=== PATIENT | male | born 1950 | race Caucasian/White ===

== ENCOUNTER → 2019-02-01 09:41 | Outpatient (CLI) | payer SELFPAY ==
[2019-02-01 11:34] LABS: Alanine Aminotransferase 46 IU/L (21-72); Albumin 4.9 g/dL (3.5-5.0); Albumin Globulin Ratio 1.7 (1.0-2.8); Alkaline Phosphatase 62 U/L (38-126); Aspartate Aminotransferase 38 IU/L (17-59); BUN Creatinine Ratio 28.8 (6-22); Bilirubin Total 0.7 mg/dL (0.2-1.3); Blood Urea Nitrogen 23 mg/dL (9-20); Calcium 10.1 mg/dL (8.4-10.2); Carbon Dioxide 31 mmol/L (22-32); Chloride 98 mmol/L (98-107); Cholesterol 258 mg/dL (140-199); Estimated Glomerular Filt Rate > 60.0 mL/min (>60); Globulin 2.9 g/dL (1.7-4.1); Glucose 106 mg/dL (80-110); HDL Cholesterol 46 mg/dL (40-60); HEMOLYSIS 23 (0-50); LDL Cholesterol Calculated 150 mg/dL (<100); Potassium 4.8 mmol/L (3.4-5.1); Sodium 140 mmol/L (137-145); Total Protein 7.8 g/dL (6.3-8.2); Triglycerides 308 mg/dL (35-150)
== END ==
PROVIDERS: PCP Internal Medicine; Visit Provider Internal Medicine
DX: R03.0 Elevated blood-pressure reading, without diagnosis of hypertension (principal)
CPT/HCPCS: 36415; 80053; 80061

== ENCOUNTER → 2020-02-27 10:25 | Outpatient (CLI) | payer MEDICARE, SELFPAY ==
[2020-02-27 11:25] LABS: Hemoglobin A1C% w Est Avg Glu 5.8 % (4.0-6.0)
== END ==
PROVIDERS: PCP Family Medicine; Referring Provider Family Medicine; Visit Provider Family Medicine
DX: I10 Essential (primary) hypertension (principal)
CPT/HCPCS: 36415; 83036

== ENCOUNTER → 2020-06-18 08:23 | Outpatient (CLI) | payer OTHER, SELFPAY ==
[2020-06-18 09:34] LABS: Add Manual Diff / Slide Review NO; Basophils Absolute Auto 0 /uL (0-100); Basophils Percent Auto 0.8 % (0-2); Eosinophils Absolute Auto 300 /uL (0-450); Eosinophils Percent Auto 5.3 % (2-4); Hematocrit 40.7 % (41-53); Hemoglobin 13.9 g/dL (13.5-17.5); Lymphocytes Absolute Auto 1700 /uL (1100-4500); Mean Corpuscular HGB Conc 34.1 % (30-36); Mean Corpuscular Hemoglobin 31.3 PG (26-34); Mean Corpuscular Volume 91.9 fL (80-100); Monocytes Absolute Auto 400 /uL (0-900); Monocytes Percent Auto 7.4 % (3-14); Neutrophils Absolute Auto 3000 /uL (1500-7000); Neutrophils Percent Auto 55.5 % (50-75); Platelet Count 196 X10^3/uL (150-400); Red Blood Cell Count 4.42 X10^6/uL (4.5-5.9); Red Cell Distribution Width 12.8 % (11.6-14.8); White Blood Cell Count 5.3 X10^3/uL (4.5-11.0)
[2020-06-18 09:54] LABS: Alanine Aminotransferase 24 IU/L (<50); Albumin 4.1 g/dL (3.5-5.0); Albumin Globulin Ratio 1.6 (1.0-2.8); Alkaline Phosphatase 53 U/L (38-126); Aspartate Aminotransferase 23 IU/L (17-59); BUN Creatinine Ratio 32.1 (6-22); Bilirubin Total 0.4 mg/dL (0.2-1.3); Blood Urea Nitrogen 27 mg/dL (9-20); Calcium 9.2 mg/dL (8.4-10.2); Carbon Dioxide 30 mmol/L (22-32); Chloride 104 mmol/L (98-107); Cholesterol 223 mg/dL (140-199); Estimated Glomerular Filt Rate > 60.0 mL/min (>60); Globulin 2.5 g/dL (1.7-4.1); Glucose 116 mg/dL (80-110); HDL Cholesterol 47 mg/dL (40-60); HEMOLYSIS < 15 (0-50); LDL Cholesterol Calculated 141 mg/dL (<100); Potassium 4.5 mmol/L (3.4-5.1); Sodium 138 mmol/L (137-145); Total Protein 6.6 g/dL (6.3-8.2); Triglycerides 174 mg/dL (35-150)
[2020-06-18 10:29] LABS: Prostate Specific Antigen Scrn 5.51 ng/mL (0.1-4.0); TSH w/ Reflex to FT4 1.12 uIU/mL (0.47-4.68)
[2020-06-18 11:51] LABS: Creatinine Urine Random 235.8 mg/dL
[2020-06-18 11:55] LABS: Microalbumi Creatinin Ratio Ur 5.5 ug/mg CR (<30); Microalbumin Urine Random 1.3 mg/dL (0-1.6)
--- NOTE | 2020-06-18 16:00 | DI.ECHO.S_ITS ---
[place] [facility]---------+ [facility] +---------+ : : [address] : : [place] : : : : [id number] : : : : Phone: [phone]+ Echocardiogram Report + + :Name: IVAN DENNIS Study Date: 06/18/2020 Height: 70 in : :[facility] ReadingLocation: Weight: 232 lb : : Gender: Male BSA: 2.2 m2 : :: 1950 Age: 69 yrs BP: 180/98 mmHg: :Reason For Study: HEART MURMUR : :Ordering Physician: JINA, : :GABBY Performed By: Cyndi Aaron : :Referring: GABBY MURO : + + Interpretation Summary Patient was tachycardic during he exam. The ejection fraction is estimated to be 60-65%. The calculated aortic valve area is 1.5 cm2. There is mild to moderate aortic stenosis. Procedure: A two-dimensional transthoracic echocardiogram with color flow and Doppler was performed. Images from the parasternal window were difficult to obtain and are suboptimal in quality. There is no prior echocardiogram noted for this patient. The heart rate ranged between 74-103 bpm during the study. Left Ventricle: The left ventricle is normal in size. The ejection fraction is estimated to be 60-65%. Left ventricular wall motion is normal. Diastolic function could not be accurately assessed due to tachycardia. Right Ventricle: The right ventricle is normal in size and function. Atria: The left atrium is severely dilated. Right atrial size is normal. There is no Doppler evidence for an interatrial shunt. Mitral Valve: The mitral valve leaflets appear mildly thickened, but open well. There is mild mitral annular calcification. There is no mitral regurgitation. Aortic Valve: The aortic valve is not well visualized. There is mild to moderate aortic stenosis. The peak aortic velocity is 3.0 m/sec. The aortic valve mean gradient is 18.6 mmHg. The calculated aortic valve area is 1.5 cm2. There is mild aortic regurgitation. Tricuspid Valve: The tricuspid valve is normal in structure and function. There is a trace or physiologic amount of tricuspid regurgitation. Pulmonary artery pressures cannot be estimated because of the lack of a measurable TR jet velocity but the IVC suggests a CVP of around 3 mmHg. Pulmonic Valve: The pulmonic valve is not well visualized. Great Vessels: The aortic root is normal size. The ascending aorta is mildly enlarged. The IVC is of normal diameter and collapses greater than 50% with a sniff. This suggests a low right atrial pressure of 3 mm Hg. Pericardium/ Pleura There is no pericardial effusion. There is no pleural effusion. MMode/2D Measurements & Calculations LVOT diam: 2.0 cm LA A2 area: 22.4 cm2 asc Aorta Diam: 3.5 cm LA A4 area: 18.1 cm2 Ao Arch Diam (Prox Trans): 2.5 cm LA length (vol): 2.8 cm LA vol: 124.6 ml LA vol index: 56.0 ml/m2 RA long axis: 5.4 cm RVD1 (basal): 3.0 cm RA area: 14.8 cm2 TAPSE: 2.1 cm RA vol: 34.5 ml RA : 15.5 ml/m2 IVC diam: 1.4 cm Doppler Measurements & Calculations Ao V2 max: 300.1 cm/sec LVOT Max Wade: 119.0 cm/sec Ao V2 mean: 201.7 cm/sec LV V1 max P.8 mmHg Ao max P.0 mmHg LV V1 VTI: 22.7 cm Ao mean P.6 mmHg BOSTON(I,D): 1.5 cm2 Ao V2 VTI: 50.9 cm BOSTON(V,D): 1.3 cm2 sev ratio: 0.45 BOSTON indexed to BSA (cm^2/m^2): 0.66 AI P1/2t: 435.3 msec AI dec slope: 293.4 cm/sec2 MV E max wade: 106.8 cm/sec SV(LVOT): 74.3 ml MV A max wade: 2.5 cm/sec MV E/A: 42.7 Med Peak E' Wade: 14.7 cm/sec E/E' med: 7.3 Lat Peak E' Wade: 17.1 cm/sec E/E' lat: 6.3 E/e' average: 6.8 MV dec time: 0.12 sec Reading Physician:09:36 AM
== END ==
PROVIDERS: PCP Family Medicine; Referring Provider Family Medicine; Visit Provider Family Medicine
DX: I35.2 Nonrheumatic aortic (valve) stenosis with insufficiency (principal); I77.89 Other specified disorders of arteries and arterioles; R01.1 Cardiac murmur, unspecified; I10 Essential (primary) hypertension; Z12.5 Encounter for screening for malignant neoplasm of prostate; Z12.11 Encounter for screening for malignant neoplasm of colon; Z13.228 Encounter for screening for other metabolic disorders; Z13.29 Encounter for screening for other suspected endocrine disorder
CPT/HCPCS: 36415; 80053; 80061; 82043; 82570; 84443; 85025; 93306; G0103

== ENCOUNTER → 2020-06-19 08:56 | Outpatient (CLI) | payer OTHER, SELFPAY ==
[2020-06-21 11:14] LABS: Fecal Immunochemical Test Negative (Negative)
== END ==
PROVIDERS: PCP Family Medicine; Referring Provider Family Medicine; Visit Provider Family Medicine
DX: I10 Essential (primary) hypertension (principal); Z12.11 Encounter for screening for malignant neoplasm of colon; Z12.5 Encounter for screening for malignant neoplasm of prostate; Z13.220 Encounter for screening for lipoid disorders; Z13.228 Encounter for screening for other metabolic disorders; Z13.29 Encounter for screening for other suspected endocrine disorder
CPT/HCPCS: 82274

== ENCOUNTER → 2020-07-03 17:19 | Outpatient (CLI) | payer OTHER, SELFPAY ==
--- NOTE | 2020-07-03 17:24 | DI.RAD.S_ITS ---
PROCEDURE: XR CHEST 2V INDICATIONS: Exertional fatigue TECHNIQUE: 2 views of the chest were acquired. COMPARISON: [facility], , CHEST 2 VIEW, 08/24/2012, 16:04. FINDINGS: Surgical changes and devices: None. Scattered subsegmental atelectasis and/or scarring. No focal consolidation. No pleural effusions or pneumothorax. Mediastinum: Mediastinal contours are normal. Heart size is normal. Bones and chest wall: No suspicious bony abnormalities. Soft tissues appear unremarkable. IMPRESSION: Scattered subsegmental atelectasis and/or scarring. No focal consolidation. Dictated by: Luigi Palomino M.D. on 07/04/2020 at 9:34 Approved by: Luigi Palomino M.D. on 07/04/2020 at 9:37
== END ==
PROVIDERS: PCP Family Medicine; Referring Provider Family Medicine; Visit Provider Family Medicine
DX: R53.83 Other fatigue (principal); I10 Essential (primary) hypertension; E78.5 Hyperlipidemia, unspecified
CPT/HCPCS: 71046

== ENCOUNTER → 2020-07-16 09:49 | Outpatient (CLI) | payer OTHER, SELFPAY ==
[2020-07-16 11:01] LABS: COVID19 -Nasal RAPID Negative (Negative)
== END ==
PROVIDERS: PCP Family Medicine; Visit Provider Physician Assistant
DX: Z01.812 Encounter for preprocedural laboratory examination (principal); Z20.822 Contact with and (suspected) exposure to COVID-19
CPT/HCPCS: 87635; C9803

== ENCOUNTER → 2020-07-17 08:09 | Outpatient (CLI) | payer OTHER, SELFPAY ==
--- NOTE | 2020-07-17 08:50 | P.PCN_ITS ---
Cardiac Stress Test Report Referral & Results Date Patient Seen: 07/17/20 Time Patient Seen: 08:30 Requesting provider: Lalo Mitchell Indication: Dyspnea on exertion Rest ECG: Sinus tachycardia Procedure Note: Today following both written and verbal informed consent, the patient was exercised according to a standard Twin protocol. The patient exercised for a total of 2 minutes 43 seconds achieving a maximum heart rate of 149. Patient's maximum systolic blood pressure was 150. This was an estimated 4.6 METs. Testing terminated because of fatigue, angina, and exercise-induced PVCs. Exaggerated hemodynamic response to exercise. Rhythm developed frequent PVCs with minimal exertion. Patient complained of left-sided chest pain and sh ortness of breath resolved with a few minutes of rest. Rhythm normalized in the same time frame. Minimal ST deviations. Marked exercise intolerance. Impression: High probability for cardiac cause of symptoms. Unclear whether this is ischemia or electrophysiologic. Recommend cardiology referral. Please note: Actual ECG tracings can be found in the PACS system.
== END ==
PROVIDERS: PCP Family Medicine; Referring Provider Family Medicine; Visit Provider Family Medicine
DX: R06.09 Other forms of dyspnea (principal)
CPT/HCPCS: 93016; 93017; 93018

== ENCOUNTER → 2020-08-15 16:33 | Outpatient (CLI) | payer OTHER, SELFPAY ==
[2020-08-15 17:07] LABS: COVID19 -Nasal RAPID Negative (Negative)
== END ==
PROVIDERS: PCP Family Medicine; Referring Provider Internal Medicine Cardiovascular Disease; Visit Provider Internal Medicine Cardiovascular Disease
DX: I20.8 Other forms of angina pectoris (principal)
CPT/HCPCS: 87635

== ENCOUNTER → 2021-01-21 14:47 | Outpatient (CLI) | payer OTHER, SELFPAY ==
[2021-01-21 17:44] LABS: COVID19 -Nasal RAPID Negative (Negative)
== END ==
PROVIDERS: PCP Family Medicine; Referring Provider Nurse Practitioner Family; Visit Provider Nurse Practitioner Family
DX: Z01.812 Encounter for preprocedural laboratory examination (principal); Z20.822 Contact with and (suspected) exposure to COVID-19
CPT/HCPCS: 87635; C9803

== ENCOUNTER → 2021-01-23 10:44 | Outpatient (CLI) | payer OTHER, SELFPAY ==
--- NOTE | 2021-01-23 10:46 | DI.NM.S_ITS ---
PROCEDURE: NM DWAINE PERF SPECT REST & STR Rest and exercise myocardial perfusion SPECT. Gated images not obtained. RADIOPHARMACEUTICAL: 26.3 mCi Tc-99m sestamibi IV at rest and 25.7 mCi Tc-99m sestamibi IV at peak exercise. A [id number] was performed. INDICATIONS: Chest pain, unspecified TECHNIQUE: Radiopharmaceutical was injected at peak stress test, and also at rest. SPECT images were obtained, with perfusion images displayed in short axis, horizontal long axis, and vertical long axis views. COMPARISON: None. CARDIAC STRESS: A standard Twin treadmill exercise tolerance test was performed by the patient under the supervision of an attending staff. The patient exercised for 8 minutes and 59 seconds; functional aerobic impairment (JEREMIAS) is -21%; 10.1 METS. Hemodynamic data: There is normal blood pressure and heart rate response to exercise stress. Patient achieved 101% of maximum predicted heart rate at peak exercise. Symptoms: Patient denied chest pain during exercise. EK mm horizontal ST segment depression in V6 at peak exercise and into recovey; no ectopy. FINDINGS: Raw data: There is good myocardial labeling by radiotracer. No significant motion artifacts. Aogh-jp-mwltd ratio is 0.44 (normal is less than 0.38 for sestamibi tracer, and less than 0.50 for thallium tracer). TID . Left ventricle function: Gated images showed normal wall motion. Rest and stress ejection fraction >75%. Myocardial perfusion: Large size, mild intensity fixed inferior wall defect that resolves in the prone images consistent with diaphragmatic attenuation. There is normal distribution of activity in the left ventricular myocardium in the prone images. IMPRESSION: 1. No evidence of exercise-induced ischemia on prone stress perfusion imaging. 2. [address] segment depressions in lead V6 at peak exercise and into recovery. 3. Excellent exercise capacity. 4. Normal blood pressure response to exercise. Dictated by: La Gong D.O. on 01/24/2021 at 13:06 Approved by: La Gong M.D. on 01/24/2021 at 13:22
== END ==
PROVIDERS: PCP Family Medicine; Referring Provider Internal Medicine Cardiovascular Disease; Visit Provider Internal Medicine Cardiovascular Disease
DX: R07.9 Chest pain, unspecified (principal); Z95.1 Presence of aortocoronary bypass graft
CPT/HCPCS: 78452; 93017; A9502

== ENCOUNTER → 2021-04-15 09:57 | Outpatient (CLI) | payer OTHER, SELFPAY ==
[2021-04-15 13:13] LABS: Add Manual Diff / Slide Review NO; Basophils Absolute Auto 0 /uL (0-100); Basophils Percent Auto 0.8 % (0-2); Eosinophils Absolute Auto 400 /uL (0-450); Eosinophils Percent Auto 5.7 % (2-4); Hematocrit 40.7 % (41-53); Hemoglobin 14.2 g/dL (13.5-17.5); Lymphocytes Absolute Auto 1300 /uL (1100-4500); Lymphocytes Percent Auto 20.8 % (25-40); Mean Corpuscular HGB Conc 34.8 % (30-36); Mean Corpuscular Volume 92.1 fL (80-100); Monocytes Absolute Auto 400 /uL (0-900); Monocytes Percent Auto 6.7 % (3-14); Neutrophils Absolute Auto 4200 /uL (1500-7000); Platelet Count 219 X10^3/uL (150-400); Red Blood Cell Count 4.42 X10^6/uL (4.5-5.9); Red Cell Distribution Width 12.3 % (11.6-14.8); White Blood Cell Count 6.3 X10^3/uL (4.5-11.0)
[2021-04-15 13:53] LABS: BUN Creatinine Ratio 27.2 (6-22); Blood Urea Nitrogen 22 mg/dL (9-20); Carbon Dioxide 30 mmol/L (22-32); Chloride 100 mmol/L (98-107); Cholesterol 136 mg/dL (140-199); Estimated Glomerular Filt Rate > 60.0 mL/min (>60); Glucose 105 mg/dL (80-110); HDL Cholesterol 44 mg/dL (40-60); HEMOLYSIS < 15 (0-50); LDL Cholesterol Calculated 65 mg/dL (<100); Potassium 4.6 mmol/L (3.4-5.1); Sodium 139 mmol/L (137-145); Triglycerides 133 mg/dL (35-150)
== END ==
PROVIDERS: PCP Family Medicine; Referring Provider Nurse Practitioner; Visit Provider Nurse Practitioner
DX: E78.5 Hyperlipidemia, unspecified (principal); I25.10 Atherosclerotic heart disease of native coronary artery without angina pectoris
CPT/HCPCS: 36415; 80048; 80061; 85025

== ENCOUNTER 2021-04-24 08:30 | Outpatient (RCR) | payer OTHER, SELFPAY | END 2021-04-24 10:30 | LOC: CAR 08:30 | PROVIDERS: PCP Family Medicine; Referring Provider Family Medicine; Visit Provider Family Medicine | DX: Z95.5 Presence of coronary angioplasty implant and graft (principal) | CPT/HCPCS: 93798 ==

== ENCOUNTER → 2021-05-05 10:22 | Outpatient (CLI) | payer OTHER, SELFPAY ==
[2021-05-05 11:08] LABS: COVID19 -Nasal RAPID Negative (Negative)
== END ==
PROVIDERS: PCP Family Medicine; Visit Provider Physician Assistant
DX: Z20.822 Contact with and (suspected) exposure to COVID-19 (principal)
CPT/HCPCS: 87635

== ENCOUNTER → 2022-08-01 09:38 | Outpatient (CLI) | payer OTHER, SELFPAY ==
[2022-08-01 10:14] LABS: Add Manual Diff / Slide Review NO; Basophils Absolute Auto 0 /uL (0-100); Basophils Percent Auto 0.5 % (0-2); Eosinophils Absolute Auto 400 /uL (0-450); Eosinophils Percent Auto 6.8 % (2-4); Hematocrit 43.3 % (41-53); Hemoglobin 14.8 g/dL (13.5-17.5); Lymphocytes Absolute Auto 2100 /uL (1100-4500); Mean Corpuscular HGB Conc 34.2 % (30-36); Mean Corpuscular Hemoglobin 31.9 PG (26-34); Mean Corpuscular Volume 93.2 fL (80-100); Monocytes Absolute Auto 400 /uL (0-900); Monocytes Percent Auto 7.1 % (3-14); Neutrophils Absolute Auto 3300 /uL (1500-7000); Neutrophils Percent Auto 52.6 % (50-75); Platelet Count 224 X10^3/uL (150-400); Red Blood Cell Count 4.65 X10^6/uL (4.5-5.9); Red Cell Distribution Width 12.8 % (11.6-14.8); White Blood Cell Count 6.3 X10^3/uL (4.5-11.0)
[2022-08-01 10:34] LABS: Alanine Aminotransferase 33 IU/L (<50); Albumin 4.6 g/dL (3.5-5.0); Albumin Globulin Ratio 1.7 (1.0-2.8); Alkaline Phosphatase 52 U/L (38-126); Aspartate Aminotransferase 27 IU/L (17-59); BUN Creatinine Ratio 36.5 (6-22); Bilirubin Total 0.6 mg/dL (0.2-1.3); Blood Urea Nitrogen 27 mg/dL (9-20); Calcium 9.5 mg/dL (8.4-10.2); Carbon Dioxide 31 mmol/L (22-32); Chloride 101 mmol/L (98-107); Cholesterol 260 mg/dL (140-199); Estimated Glomerular Filt Rate > 60 mL/min (>60); Globulin 2.7 g/dL (1.7-4.1); Glucose 104 mg/dL (80-110); HDL Cholesterol 57 mg/dL (40-60); HEMOLYSIS < 15 (0-50); LDL Cholesterol Calculated 166 mg/dL (<100); Potassium 4.6 mmol/L (3.4-5.1); Sodium 138 mmol/L (137-145); Total Protein 7.3 g/dL (6.3-8.2); Triglycerides 183 mg/dL (35-150)
[2022-08-01 11:01] LABS: Hemoglobin A1C% w Est Avg Glu 5.7 % (4.0-6.0)
[2022-08-01 11:03] LABS: Prostate Specific Antigen 9.63 ng/mL (0.10-4.00)
== END ==
PROVIDERS: PCP Family Medicine; Referring Provider Family Medicine; Visit Provider Family Medicine
DX: E11.9 Type 2 diabetes mellitus without complications (principal); N40.0 Benign prostatic hyperplasia without lower urinary tract symptoms; E78.5 Hyperlipidemia, unspecified; I10 Essential (primary) hypertension
CPT/HCPCS: 36415; 80053; 80061; 83036; 84153; 85025

== ENCOUNTER → 2022-09-11 06:58 | Outpatient (CLI) | payer OTHER, SELFPAY ==
--- NOTE | 2022-09-11 07:00 | DI.ECHO.S_ITS ---
+ + [place] [facility] : : [facility] S : : [place] : : [address] [place] : : [id number] : : Phone: [phone] Echocardiogram Report + + :Name: IVAN DENNIS Study Date: 09/11/2022 Height: 69 in : :[facility] ReadingLocation: Weight: 218 lb : : Gender: Male BSA: 2.1 m2 : :: 1950 Age: 72 yrs BP: 136/66 mmHg: :Reason For Study: MURMUR HR: 72 : :Ordering Physician: JINA, : :GABBY Performed By: GENA GHOTRA : :Referring: GABBY MURO : + + Interpretation Summary 1) Normal left ventricular thickness, size, wall motion, and systolic function (EF 55-60%). 2) Normal right ventricular size with mildly reduced function. 3) There is moderate aortic stenosis (valve area 1.2cm2, mean gradient 17mmHg, severity ratio 0.39). 4) There is mild aortic regurgitation. 5) Compared to the Echo done 06/18/2020, aortic stenosis has progressed from mild-moderate to moderate on this study. Procedure: A two-dimensional transthoracic echocardiogram with color flow and Doppler was performed. The study quality was technically adequate. Comparison is made with the echocardiogram of 06/18/2020. The patient was in normal sinus rhythm during the exam. Left Ventricle: The left ventricle is normal in size and wall thickness. Left ventricular systolic function is normal. The ejection fraction is estimated to be 55-60%. Left ventricular wall motion is normal. Diastolic parameters suggest a relaxation abnormality of the left ventricle, consistent with probable normal filling pressures. Right Ventricle: The right ventricle is normal size. Right ventricular systolic function is mildly reduced. Atria: The left atrium is mildly dilated. The right atrium is normal in size. There is no Doppler evidence for an interatrial shunt. Mitral Valve: The mitral valve leaflets appear mildly thickened, but open well. There is mild mitral annular calcification. There is trace mitral regurgitation. Aortic Valve: The aortic valve is mildly calcified. There is moderate aortic stenosis. The aortic valve area indexed to the BSA is 0.57 . The peak aortic velocity is 2.7 m/sec. The peak aortic velocity on the previous exam was 3 m/sec. The aortic valve mean gradient is 17 mmHg. There is mild aortic regurgitation. Tricuspid Valve: The tricuspid valve is normal in structure and function. There is trace tricuspid regurgitation. Pulmonary artery pressures cannot be estimated because of the lack of a measurable TR jet velocity. Pulmonic Valve: The pulmonic valve is normal in structure and function. There is no pulmonic valvular regurgitation. Great Vessels: The aortic root is normal size. The dimensions of the ascending aorta are normal. The IVC is of normal diameter and collapses greater than 50% with a sniff. This suggests a low right atrial pressure of 3 mm Hg. MMode/2D Measurements & Calculations LVIDd: 4.6 cm LVOT diam: 2.0 cm LVIDs: 2.9 cm Ao root diam: 3.2 cm FS: 37.0 % asc Aorta Diam: 3.4 cm IVSd: 1.0 cm LVPWd: 1.1 cm LV encarnacion. diameter/BSA (cm/m^2): 2.1 LV sys. diameter/BSA (cm/m^2): 1.4 LA A2 area: 26.2 cm2 RA long axis: 5.4 cm LA A4 area: 18.3 cm2 LA length (vol): 6.1 cm LA vol: 67.3 ml LA vol index: 31.4 ml/m2 LVLs ap4: 7.5 cm LVLd ap2: 7.9 cm LVLs ap2: 7.2 cm TAPSE_phl: 1.4 cm Doppler Measurements & Calculations Ao V2 max: 268.0 cm/sec LVOT Max Wade: 101.0 cm/sec Ao V2 mean: 196.0 cm/sec LV V1 max P.1 mmHg Ao max P.7 mmHg LV V1 VTI: 24.0 cm Ao mean P.0 mmHg BOSTON(I,D): 1.2 cm2 Ao V2 VTI: 62.0 cm BOSTON(V,D): 1.2 cm2 sev ratio: 0.39 BOSTON indexed to BSA (cm^2/m^2): 0.57 AI P1/2t: 436.8 msec AI dec slope: 283.0 cm/sec2 MV E max wade: 89.5 cm/sec PA V2 max: 102.0 cm/sec MV A max wade: 64.7 cm/sec PA V2 mean: 72.9 cm/sec MV E/A: 1.4 PA mean P.0 mmHg Med Peak E' Wade: 7.5 cm/sec PA pr(Accel): 20.5 mmHg E/E' med: 12.0 Lat Peak E' Wade: 10.1 cm/sec E/E' lat: 8.9 E/e' average: 10.4 MV dec time: 0.16 sec SV(LVOT): 75.4 ml AV P1/2t-pr_phl: 437.0 msec AV VR_phl: 0.38 BOSTON(VTI)/BSA_phl: 0.58 MV P1/2t-pr_phl: 47.0 msec RV S Vel_phl: 6.9 cm/sec Reading Physician:12:29 PM
== END ==
PROVIDERS: PCP Family Medicine; Referring Provider Family Medicine; Visit Provider Family Medicine
DX: I08.0 Rheumatic disorders of both mitral and aortic valves (principal); R01.1 Cardiac murmur, unspecified
CPT/HCPCS: 93306

== ENCOUNTER → 2022-10-28 12:04 | Outpatient (CLI) | payer OTHER, SELFPAY ==
--- NOTE | 2022-10-28 12:05 | DI.MRI.S_ITS ---
PROCEDURE: MR PELVIC PROSTATE PROTOCOL INDICATIONS: Elevated and rising PSA/prostate nodule left apex TECHNIQUE: Coronal HASTE, axial T1 FSE with fat saturation, 3-plane nonbreath-hold T2 FSE. After the administration of contrast, dynamic axial, delayed axial and coronal VIBE or 2-D FLASH with fat saturation through the pelvis. Optional diffusion weighted imaging and ADC may be performed. COMPARISON: None. FINDINGS: Image quality: Good Prostate: 4.2 x 4.7 x 4.0 cm. Estimated ellipsoid volume is 41 cc. Transitional zone heterogenous nodules are present, either well encapsulated or mostly encapsulated, compatible with PI-RADS 1 or 2 likely BPH nodules. Mildly T2 hypointense heterogenous striated appearance of the peripheral zone is commonly seen with current or prior prostatitis, PI-RADS 2. Left apex 1.7 x 1.4 x 1.9 cm nodule. DCE positive. DWI score 5. T2 score 5. PI-RADS 5. See image 08/22, 10/23. No measurable extracapsular extension however, there is enhancement of the adjacent capsule and extent of contact raises concern for micro capsular involvement. Seminal vesicles are clear. Genitourinary system: No dilation of the distal ureters. The bladder is unremarkable. Bowel and peritoneum: No evidence of bowel obstruction. No abscess or pathologic ascites. Nodes and vessels: No lymphadenopathy by size criteria. No aneurysmal vessel identified. Soft tissues: Pelvic wall appears unremarkable. Bones: No acute or suspicious osseous finding. There are degenerative changes partially seen. IMPRESSION: PI-RADS 5 nodule in the left apex, measuring up to 1.9 x 1.7 x 1.4 cm. Imaging suspicion for micro capsular involvement. Sequela of BPH and possible prior prostatitis, PI-RADS 2. Dictated by: Dung Teran M.D. on 10/28/2022 at 14:14 Approved by: Dung Teran M.D. on 10/28/2022 at 14:20
== END ==
PROVIDERS: PCP Family Medicine; Referring Provider Urology; Visit Provider Urology
DX: N42.9 Disorder of prostate, unspecified (principal); R97.20 Elevated prostate specific antigen [PSA]
CPT/HCPCS: 72197

== ENCOUNTER → 2023-02-13 10:47 | Outpatient (CLI) | payer OTHER, SELFPAY ==
--- NOTE | 2023-02-13 10:48 | DI.CT.S_ITS ---
PROCEDURE: CT ABDOMEN PELVIS W CON INDICATIONS: New diagnosis prostate cancer TECHNIQUE: After the administration of intravenous contrast, axial sections acquired from the lung bases to the pubic symphysis. Coronal and sagittal reformats were performed. For radiation dose reduction, the following was used: automated exposure control, adjustment of mA and/or kV according to patient size. COMPARISON: None. FINDINGS: Image quality: Excellent. Lung bases: Unremarkable. Heart: No significant findings. ABDOMEN: Liver: Unremarkable. Gallbladder: Unremarkable. Biliary ducts: Unremarkable. Pancreas: Unremarkable. Spleen: Unremarkable. Adrenal Glands: Unremarkable. Kidneys and Ureters: Fluid attenuating renal cysts; no complex renal cysts which require follow-up. No hydronephrosis or nephrolithiasis. Stomach and Bowel: Stomach, small bowel loops, and colon are unremarkable. Peritoneum: No abnormal intraperitoneal fluid. No free air. Ventral Wall: Left ventral hernia containing fat. The neck measures 1.5 centimeters and the sac measures 6.7 x 2.8 centimeters (series 2, image 27). Abdominal Nodes: No retroperitoneal or mesenteric adenopathy by size criteria. Vessels: Aorta and inferior vena cava are normal in size. PELVIS: Pelvic Organs: Enhancing left peripheral zone mass of the prior state apex measuring 2 centimeter. Suspicious findings of extracapsular extension, with enhancement beyond the prostate capsule (series 2, image 23). Bladder: Unremarkable. Pelvic Nodes: 0.7 centimeter short axis left external iliac chain node (series 2, image 64) Miscellaneous: No hernias are seen. Bones: Unremarkable. IMPRESSION: Left prostate peripheral zone apex mass with imaging features concerning for extracapsular extension. Indeterminate left external iliac chain node measuring 7 millimeter short axis. This could be correlated with PMSA. No suspicious osseous abnormality. Dictated by: Manan Alan M.D. on 02/13/2023 at 16:06 Approved by: Manan Alan M.D. on 02/13/2023 at 16:13
--- NOTE | 2023-02-13 10:48 | DI.NM.S_ITS ---
PROCEDURE: NM BONE SCAN WHOLE BODY RADIOPHARMACEUTICAL: 21.1 mCi Tc-99m MDP IV. INDICATIONS: New diagnosis prostate cancer TECHNIQUE: Delayed whole-body scintigrams were obtained approximately 3-4 hours after intravenous injection of radiotracer. Anterior and posterior views were acquired from vertex to feet. Additional left and right oblique views of the pelvis were obtained. COMPARISON: None. FINDINGS: Multiple foci of relatively symmetric degenerative change can be seen, including involving the shoulders, risks, knees, and feet. No abnormal soft tissue uptake can be seen. The kidneys demonstrate normal positions. No suspicious foci abnormal bony uptake can be seen. IMPRESSION: No suspicious bony uptake can be seen to suggest bony metastatic disease. Dictated by: Gabriel Barclay M.D. on 02/13/2023 at 15:46 Approved by: Gabriel Barclay M.D. on 02/13/2023 at 15:47
[2023-02-13 11:54] LABS: Blood Urea Nitrogen 22 mg/dL (9-20); Estimated Glomerular Filt Rate > 60 mL/min (>60)
[2023-02-13 13:17] LABS: Hemoglobin A1C% w Est Avg Glu 5.5 % (4.0-6.0)
[2023-02-13 16:11] LABS: Creatinine Urine Random 116.5 mg/dL
[2023-02-13 16:41] LABS: Microalbumin Urine Random < 0.6 mg/dL (0-1.6)
== END ==
PROVIDERS: PCP Family Medicine; Referring Provider Urology; Visit Provider Urology
DX: E11.9 Type 2 diabetes mellitus without complications (principal); C61 Malignant neoplasm of prostate; I10 Essential (primary) hypertension; R97.20 Elevated prostate specific antigen [PSA]
CPT/HCPCS: 36415; 74177; 78306; 82043; 82565; 82570; 83036; 84520; A9503; Q9967

== ENCOUNTER → 2023-08-03 13:14 | Outpatient (CLI) | payer OTHER, SELFPAY ==
[2023-08-03 15:47] LABS: Prostate Specific Antigen 0.808 ng/mL (0.10-4.00)
== END ==
PROVIDERS: PCP Family Medicine; Referring Provider Urology; Visit Provider Urology
DX: C61 Malignant neoplasm of prostate (principal); R97.20 Elevated prostate specific antigen [PSA]
CPT/HCPCS: 36415; 84153

== ENCOUNTER → 2023-09-04 08:52 | Outpatient (CLI) | payer OTHER, SELFPAY ==
[2023-09-04 11:17] LABS: Prostate Specific Antigen 0.347 ng/mL (0.10-4.00)
== END ==
PROVIDERS: PCP Family Medicine; Referring Provider Urology; Visit Provider Urology
DX: C61 Malignant neoplasm of prostate (principal)
CPT/HCPCS: 36415; 84153

== ENCOUNTER → 2023-11-06 12:09 | Outpatient (CLI) | payer OTHER, SELFPAY ==
--- NOTE | 2023-11-06 12:09 | DI.ECHO.S_ITS ---
[place]+ [facility] : : [address] : : [place] : : [id number] : : Phone: [phone] Echocardiogram Report + + :Name: IVAN DENNIS Study Date: 11/06/2023 Height: 70 in : :[facility] ReadingLocation: Weight: 214 lb : : Gender: Male BSA: 2.1 m2 : :: 1950 Age: 73 yrs BP: 146/77 mmHg: :Reason For Study: NONRHEUMATIC AORTIC VALVE STENOSIS : :Ordering Physician: FLORENCE, : :CALLY Performed By: Skip Mack : :Referring: CALLY WATSON : + + Interpretation Summary 1) Normal left ventricular size, wall motion, and systolic function (EF 55- 60%). 2) Normal right ventricular size with mildly reduced function. 3) There is moderate aortic stenosis (valve area 1.2cm2, mean gradient 26mmHg, severity ratio 0.3). 4) There is mild to moderate aortic regurgitation. 5) Compared to the Echo done09/11/2022, aortic regurgitation has increased slightly from mild to mild-moderate on this study. Procedure: A two-dimensional transthoracic echocardiogram with color flow and Doppler was performed. The study quality was technically adequate. Comparison is made with the echocardiogram of 09/11/2022. The patient was in sinus rhythm with heart rates between 82-98 bpm during the exam. Left Ventricle: The left ventricle is normal in size. Left ventricular wall thickness is normal. Proximal septal thickening is noted. The ejection fraction is estimated to be 55-60%. Left ventricular systolic function appears normal without focal wall motion abnormalities. Right Ventricle: The right ventricle is normal size. Right ventricular systolic function is mildly reduced. Atria: The left atrial size is normal. Right atrial size is normal. The interatrial septum grossly appears intact with no obvious evidence for an atrial septal defect. Mitral Valve: The mitral valve is grossly normal. MAC. There is no mitral valve stenosis. There is trace mitral regurgitation. Aortic Valve: The aortic valve is trileaflet. There is mild aortic valve sclerosis. There is moderate aortic stenosis. The peak aortic velocity is 3.40 m/sec. The aortic valve mean gradient is 26.3 mmHg. The calculated aortic valve area is 1.2 cm2. There is mild to moderate aortic regurgitation. Tricuspid Valve: The tricuspid valve is normal. There is no tricuspid stenosis. No tricuspid regurgitation. Pulmonic Valve: The pulmonic valve leaflets are thin and pliable; valve motion is normal. There is no pulmonic valvular stenosis. There is no pulmonic valvular regurgitation. Great Vessels: The aortic root is normal size. The dimensions of the ascending aorta are normal. The IVC is of normal diameter and collapses greater than 50% with a sniff. This suggests a low right atrial pressure of 3 mm Hg. Pericardium/ Pleura There is no pericardial effusion. There is no pleural effusion. MMode/2D Measurements & Calculations LVIDd: 4.2 cm LVOT diam: 2.1 cm LVIDs: 2.4 cm Ao root diam: 3.4 cm FS: 42.3 % asc Aorta Diam: 3.2 cm IVSd: 1.2 cm LVPWd: 1.00 cm LV encarnacion. diameter/BSA (cm/m^2): 2.0 LV sys. diameter/BSA (cm/m^2): 1.1 LA A2 area: 23.5 cm2 RA long axis: 5.1 cm LA A4 area: 23.7 cm2 RA area: 18.0 cm2 LA length (vol): 6.3 cm RA vol: 53.9 ml LA vol: 75.4 ml RA : 25.1 ml/m2 LA vol index: 35.1 ml/m2 IVC diam: 1.8 cm RVD1 (basal): 3.7 cm RVD2 (mid): 3.6 cm TAPSE: 2.2 cm Doppler Measurements & Calculations Ao V2 max: 340.6 cm/sec LVOT Max Wade: 106.9 cm/sec Ao V2 mean: 245.3 cm/sec LV V1 max P.3 mmHg Ao max P.1 mmHg LV V1 VTI: 24.4 cm Ao mean P.3 mmHg BOSTON(I,D): 1.2 cm2 Ao V2 VTI: 74.7 cm BOSTON(V,D): 1.1 cm2 sev ratio: 0.33 BOSTON indexed to BSA (cm^2/m^2): 0.55 AI P1/2t: 335.2 msec AI dec slope: 379.4 cm/sec2 MV E max wade: 73.1 cm/sec PA V2 max: 109.4 cm/sec MV A max wade: 87.6 cm/sec PA V2 mean: 72.5 cm/sec MV E/A: 0.83 PA mean P.4 mmHg Med Peak E' Wade: 4.7 cm/sec PA pr(Accel): 32.8 mmHg E/E' med: 15.7 Lat Peak E' Wade: 10.0 cm/sec E/E' lat: 7.3 E/e' average: 11.5 MV dec time: 0.20 sec SV(OT): 87.6 ml Reading Physician:01:59 PM
== END ==
PROVIDERS: PCP Family Medicine; Referring Provider Internal Medicine Cardiovascular Disease; Visit Provider Internal Medicine Cardiovascular Disease
DX: I35.2 Nonrheumatic aortic (valve) stenosis with insufficiency (principal)
CPT/HCPCS: 93306

== ENCOUNTER → 2023-12-28 17:15 | Outpatient (CLI) | payer OTHER, SELFPAY ==
[2023-12-28 19:10] LABS: Prostate Specific Antigen < 0.064 ng/mL (0.10-4.00)
== END ==
PROVIDERS: PCP Family Medicine; Referring Provider Urology; Visit Provider Urology
DX: C61 Malignant neoplasm of prostate (principal); R39.9 Unspecified symptoms and signs involving the genitourinary system; N40.1 Benign prostatic hyperplasia with lower urinary tract symptoms; R39.14 Feeling of incomplete bladder emptying
CPT/HCPCS: 36415; 84153

== ENCOUNTER → 2024-02-23 10:33 | Outpatient (CLI) | payer OTHER, SELFPAY ==
[2024-02-23 12:43] LABS: Hemoglobin A1C% w Est Avg Glu 5.8 % (4.0-6.0)
[2024-02-23 12:55] LABS: Alanine Aminotransferase 32 IU/L (<50); Albumin 4.6 g/dL (3.5-5.0); Albumin Globulin Ratio 2.2 (1.0-2.8); Alkaline Phosphatase 61 U/L (38-126); Aspartate Aminotransferase 27 IU/L (17-59); BUN Creatinine Ratio 23.9 (6-22); Bilirubin Total 0.6 mg/dL (0.2-1.3); Blood Urea Nitrogen 17 mg/dL (9-20); Carbon Dioxide 28 mmol/L (22-32); Chloride 100 mmol/L (98-107); Cholesterol 157 mg/dL (140-199); Estimated Glomerular Filt Rate > 60 mL/min (>60); Globulin 2.1 g/dL (1.7-4.1); Glucose 112 mg/dL (80-110); HDL Cholesterol 77 mg/dL (40-60); HEMOLYSIS < 15 (0-50); LDL Cholesterol Calculated 52 mg/dL (<100); Potassium 4.6 mmol/L (3.4-5.1); Sodium 136 mmol/L (137-145); Total Protein 6.7 g/dL (6.3-8.2); Triglycerides 142 mg/dL (35-150)
[2024-02-23 13:26] LABS: Prostate Specific Antigen < 0.064 ng/mL (0.10-4.00)
== END ==
LOC: LAB 10:34
PROVIDERS: Urology; PCP Family Medicine; Referring Provider Family Medicine; Visit Provider Family Medicine
DX: R97.20 Elevated prostate specific antigen [PSA] (principal); R73.03 Prediabetes; I10 Essential (primary) hypertension; E78.5 Hyperlipidemia, unspecified
CPT/HCPCS: 36415; 80053; 80061; 83036; 84153

== ENCOUNTER → 2024-03-29 06:45 | Outpatient (CLI) | payer OTHER, SELFPAY ==
--- NOTE | 2024-03-29 06:46 | DI.ECHO.S_ITS ---
[facility] : : [address] : : [place] : : [id number] : : Phone: [phone] Echocardiogram Report + + :Name: IVAN DENNIS Study Date: 03/29/2024 Height: 70 in : :[facility] ReadingLocation: Weight: 215 lb : : Gender: Male BSA: 2.2 m2 : :: 1950 Age: 73 yrs BP: 142/73 mmHg: :Reason For Study: AORTIC STENOSIS : :Ordering Physician: Cally Morales : :Shirley Performed By: Cyndi Aaron : :Referring: CALLY WATSON : + + Interpretation Summary 1) Normal left ventricular size, wall motion, and systolic function (EF 55- 60%). 2) Normal right ventricular size with low normal function. 3) There is moderate aortic stenosis (mean gradient 23mmHg). LVOT doppler not available for aortic valve area calculation. 4) There is mild to moderate aortic regurgitation. 5) Compared to the Echo done 11/06/2023, no siginficant change. Procedure: A two-dimensional transthoracic echocardiogram with color flow and Doppler was performed. The study quality was technically adequate. Comparison is made with the echocardiogram of 11/06/2023. The patient was in sinus rhythm with heart rates between 66-75 bpm during the exam. Left Ventricle: The left ventricle is normal in size and wall thickness. The ejection fraction is estimated to be 55-60%. Left ventricular systolic function appears normal without focal wall motion abnormalities. Diastolic parameters suggest a relaxation abnormality of the left ventricle, consistent with probable normal filling pressures. Right Ventricle: The right ventricle is normal size. Right ventricular systolic function is at the lower limits of normal. Atria: The left atrial size is normal. Right atrial size is normal. There is no Doppler evidence for an interatrial shunt. Mitral Valve: There is mild mitral annular calcification. The mitral valve is grossly normal. There is trace mitral regurgitation. Aortic Valve: The aortic valve is trileaflet. The aortic valve is mildly calcified. There is moderately reduced leaflet mobility. The peak aortic velocity is 3.2 m/sec. The aortic valve mean gradient is 23 mmHg. There is mild to moderate aortic regurgitation. Tricuspid Valve: The tricuspid valve is normal in structure and function. There is a trace or physiologic amount of tricuspid regurgitation. The right ventricular systolic pressure is estimated to be at least 25 mmHg based on an estimated right atrial pressure of 3 mm Hg. Pulmonic Valve: The pulmonic valve leaflets are thin and pliable; valve motion is normal. There is a trace or physiologic amount of pulmonic regurgitation. Great Vessels: The aortic root is normal size. The dimensions of the ascending aorta are normal. The IVC is of normal diameter and collapses greater than 50% with a sniff. This suggests a low right atrial pressure of 3 mm Hg. Pericardium/ Pleura There is no pericardial effusion. There is no pleural effusion. MMode/2D Measurements & Calculations LVIDd: 4.8 cm LVOT diam: 2.0 cm LVIDs: 3.1 cm Ao root diam: 3.2 cm FS: 35.8 % asc Aorta Diam: 3.3 cm IVSd: 1.0 cm LVPWd: 0.89 cm LV encarnacion. diameter/BSA (cm/m^2): 2.2 LV sys. diameter/BSA (cm/m^2): 1.4 LA A2 area: 20.6 cm2 RA long axis: 5.2 cm LA A4 area: 19.0 cm2 RA area: 15.2 cm2 LA length (vol): 5.8 cm RA vol: 37.8 ml LA vol: 57.0 ml RA : 17.6 ml/m2 LA vol index: 26.5 ml/m2 IVC diam: 1.5 cm RVD1 (basal): 3.9 cm TAPSE: 1.7 cm Doppler Measurements & Calculations Ao V2 max: 320.7 cm/sec AI P1/2t: 457.1 msec Ao V2 mean: 238.2 cm/sec AI dec slope: 248.6 cm/sec2 Ao max P.7 mmHg Ao mean P.6 mmHg Ao V2 VTI: 75.8 cm MV E max wade: 87.8 cm/sec TR max awde: 235.4 cm/sec MV A max wade: 64.3 cm/sec TR max P.2 mmHg MV E/A: 1.4 PA V2 max: 99.2 cm/sec Med Peak E' Wade: 7.7 cm/sec PA V2 mean: 71.0 cm/sec E/E' med: 11.3 PA mean P.2 mmHg Lat Peak E' Wade: 10.6 cm/sec PA pr(Accel): 37.9 mmHg E/E' lat: 8.3 E/e' average: 9.8 MV dec time: 0.26 sec Reading Physician:05:39 PM
== END ==
PROVIDERS: PCP Family Medicine; Referring Provider Internal Medicine Cardiovascular Disease; Visit Provider Internal Medicine Cardiovascular Disease
DX: I34.81 Nonrheumatic mitral (valve) annulus calcification (principal); I35.1 Nonrheumatic aortic (valve) insufficiency
CPT/HCPCS: 93306

== ENCOUNTER → 2024-04-21 08:58 | Outpatient (CLI) | payer OTHER, SELFPAY ==
[2024-04-21 09:49] LABS: Hematocrit 39.8 % (41-53); Hemoglobin 13.7 g/dL (13.5-17.5); Mean Corpuscular HGB Conc 34.5 % (30-36); Mean Corpuscular Volume 92.7 fL (80-100); Platelet Count 259 X10^3/uL (150-400); Red Blood Cell Count 4.29 X10^6/uL (4.5-5.9); Red Cell Distribution Width 12.7 % (11.6-14.8); White Blood Cell Count 5.2 X10^3/uL (4.5-11.0)
[2024-04-21 10:14] LABS: BUN Creatinine Ratio 30.8 (6-22); Blood Urea Nitrogen 24 mg/dL (9-20); Calcium 9.9 mg/dL (8.4-10.2); Carbon Dioxide 27 mmol/L (22-32); Chloride 100 mmol/L (98-107); Estimated Glomerular Filt Rate > 60 mL/min (>60); Glucose 110 mg/dL (80-110); HEMOLYSIS < 15 (0-50); Potassium 4.3 mmol/L (3.4-5.1); Sodium 132 mmol/L (137-145)
[2024-04-21 10:23] LABS: NT-proBNP (BNP-Adult 18+) 193 pg/mL (<125)
[2024-04-21 10:49] LABS: Prostate Specific Antigen < 0.064 ng/mL (0.10-4.00)
== END ==
PROVIDERS: Urology; PCP Family Medicine; Referring Provider Internal Medicine Cardiovascular Disease; Visit Provider Internal Medicine Cardiovascular Disease
DX: C61 Malignant neoplasm of prostate (principal); I10 Essential (primary) hypertension; R06.09 Other forms of dyspnea
CPT/HCPCS: 36415; 80048; 83880; 84153; 85027

== ENCOUNTER → 2024-08-09 15:08 | Outpatient (CLI) | payer MEDICARE, SELFPAY ==
--- NOTE | 2024-08-09 15:11 | DI.RAD.S_ITS ---
PROCEDURE: XR KNEE LT 3V INDICATIONS: eval bilateral knee pain TECHNIQUE: 3 views of the knee were acquired. COMPARISON: None. FINDINGS: Bones: There are no osseous abnormalities. Joints: Severe right patellofemoral and medial tibial femoral degenerative change appreciated.. Soft tissues: Surgical clips in the posterior medial soft tissues noted. IMPRESSION: Severe degeneration. . Dictated by: Yasir Pike M.D. on 08/10/2024 at 6:37 Approved by: Yasir Pike M.D. on 08/10/2024 at 6:38
--- NOTE | 2024-08-09 15:11 | DI.RAD.S_ITS ---
PROCEDURE: XR KNEE RT 3V INDICATIONS: eval bilateral knee pian TECHNIQUE: 3 views of the knee were acquired. COMPARISON: None. FINDINGS: Bones: There are no osseous abnormalities. Joints: Severe degeneration of the right medial tibial femoral and patellofemoral compartment appreciated.. Soft tissues: Normal Severe degeneration Normal knee. Dictated by: Yasir Pike M.D. on 08/10/2024 at 6:36 Approved by: Yasir Pike M.D. on 08/10/2024 at 6:37
== END ==
PROVIDERS: PCP Family Medicine; Referring Provider Family Medicine; Visit Provider Family Medicine
DX: M25.561 Pain in right knee (principal); M25.562 Pain in left knee
CPT/HCPCS: 73562

== ENCOUNTER → 2024-09-05 14:03 | Outpatient (CLI) | payer MEDICARE, SELFPAY ==
[2024-09-05 15:56] LABS: Prostate Specific Antigen < 0.064 ng/mL (0.10-4.00)
== END ==
PROVIDERS: PCP Family Medicine; Referring Provider Urology; Visit Provider Urology
DX: R97.20 Elevated prostate specific antigen [PSA] (principal)
CPT/HCPCS: 36415; 84153

== ENCOUNTER 2024-10-04 21:20 | Emergency (ER) | payer MEDICARE, SELFPAY ==
[2024-10-04] VITALS (8 sets, daily range): BP systolic 154–194; BP diastolic 68–92; PULSE 93–122; RESP 18–36; TEMP 36.4; O2SAT 96–99; BMI 31.6
--- NOTE | 2024-10-04 21:25 | DI.RAD.S_ITS ---
PROCEDURE: XR CHEST 1V INDICATIONS: Chest Pain TECHNIQUE: One view of the chest was acquired. COMPARISON: [facility], CR, XR CHEST 2V, 07/03/2020, 17:29. FINDINGS: Surgical changes and devices: Sternotomy. Lungs and pleura: Lungs are clear. No pleural effusions or pneumothorax. Mediastinum: Mediastinal contours appear normal. Heart size is normal. Bones and chest wall: No suspicious bony lesions. Overlying soft tissues appear unremarkable. IMPRESSION: No acute cardiopulmonary abnormality is seen. Dictated by: Manan Alan M.D. on 10/04/2024 at 21:48 Approved by: Manan Alan M.D. on 10/04/2024 at 21:49
--- NOTE | 2024-10-04 21:27 | EKG_ITS ---
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
[2024-10-04 21:43] LABS: Add Manual Diff / Slide Review NO; Basophils Absolute Auto 100 /uL (0-100); Basophils Percent Auto 0.8 % (0-2); Eosinophils Absolute Auto 300 /uL (0-450); Eosinophils Percent Auto 4.3 % (2-4); Hematocrit 41.8 % (41-53); Hemoglobin 14.5 g/dL (13.5-17.5); Lymphocytes Absolute Auto 2400 /uL (1100-4500); Lymphocytes Percent Auto 31.7 % (25-40); Mean Corpuscular HGB Conc 34.8 % (30-36); Mean Corpuscular Hemoglobin 32.2 PG (26-34); Mean Corpuscular Volume 92.6 fL (80-100); Monocytes Absolute Auto 700 /uL (0-900); Monocytes Percent Auto 9.9 % (3-14); Neutrophils Absolute Auto 4000 /uL (1500-7000); Neutrophils Percent Auto 53.3 % (50-75); Platelet Count 214 X10^3/uL (150-400); Red Blood Cell Count 4.52 X10^6/uL (4.5-5.9); Red Cell Distribution Width 12.5 % (11.6-14.8); White Blood Cell Count 7.5 X10^3/uL (4.5-11.0)
[2024-10-04 21:55] LABS: INR 0.9 (0.9-1.3); Prothrombin Time 10.3 SECONDS (9.4-12.5)
[2024-10-04 21:58] LABS: PTT Partial Thromboplastin Tim 44 SECONDS (25.1-36.5)
[2024-10-04 22:00] LABS: Alanine Aminotransferase 29 IU/L (<50); Albumin 4.8 g/dL (3.5-5.0); Albumin Globulin Ratio 1.8 (1.0-2.8); Alkaline Phosphatase 69 U/L (38-126); Aspartate Aminotransferase 31 IU/L (17-59); BUN Creatinine Ratio 33.7 (6-22); Bilirubin Total 0.4 mg/dL (0.2-1.3); Blood Urea Nitrogen 28 mg/dL (9-20); Calcium 9.8 mg/dL (8.4-10.2); Carbon Dioxide 29 mmol/L (22-32); Chloride 101 mmol/L (98-107); Estimated Glomerular Filt Rate > 60 mL/min (>60); Globulin 2.7 g/dL (1.7-4.1); Glucose 176 mg/dL (70-99); HEMOLYSIS < 15 (0-50); Lipase 52 U/L (23-300); Magnesium 1.8 mg/dL (1.6-2.3); Potassium 3.7 mmol/L (3.4-5.1); Sodium 138 mmol/L (137-145); Total Protein 7.5 g/dL (6.3-8.2)
[2024-10-04 22:11] LABS: NT-proBNP (BNP-Adult 18+) 395 pg/mL (<125); Troponin I < 0.012 ng/mL (0.01-0.034)
[2024-10-04 22:24] LABS: Creatine Kinase 124 U/L (55-170)
--- NOTE | 2024-10-04 23:15 | ED.CHESTPAIN ---
HPI - Chest Pain General Chief Complaint: Chest Pain Stated Complaint: CHEST PAIN, TOOK TWO NITRILE, NOT WORKING Time Seen by Provider: 10/04/24 23:15 Source: patient Mode of arrival: Ambulatory Limitations: no limitations History of Present Illness HPI narrative: 74-year-old male past medical history of CABG, hyperlipidemia, hypertension, comes into the ED from home for evaluation of chest pain states that started an hour prior to arrival how occurred while watching TV nonexertional in nature, states he took 3 nitro states that he felt like it did help a little bit, at time of evaluation patient states complete resolution of chest pain, denies any other symptoms at this time. Patient does follow up with Dr. Watson. Patient states last cardiology evaluation was done less than a year ago, states he had a normal echo at that time. He denies any other symptoms at this time Related Data Home Medications Medication Instructions Recorded Confirmed aspirin 81 mg tablet,delayed 81 mg PO DAILY 10/20/22 09/16/24 release (Adult Low Dose Aspirin) ezetimibe 10 mg tablet 10 mg PO DAILY 02/24/23 09/16/24 Previous Rx's Medication Instructions Recorded clopidogrel 75 mg tablet See Rx Instructions .Route 12/03/21 .COMPLEX #90 tabs fluticasone propionate 50 1 spray intranasal Q12H #16 grams 09/17/23 mcg/actuation nasal spray,suspension (Flonase Allergy Relief) metoprolol succinate 25 mg See Rx Instructions .Route 10/22/23 tablet,extended release 24 hr .COMPLEX #90 tabs nitroglycerin 0.4 mg sublingual 0.4 mg sublingual Q5M PRN chest 12/07/23 tablet pain #30 tabs rosuvastatin 20 mg tablet 20 mg PO DAILY #90 tabs 02/02/24 lisinopril 2.5 mg tablet 2.5 mg PO BID #180 tabs 05/09/24 tamsulosin 0.4 mg capsule See Rx Instructions .Route 08/02/24 .COMPLEX #180 caps trazodone 50 mg tablet 50 mg PO BEDTIME PRN insomnia #30 09/07/24 tabs Allergies Allergy/AdvReac Type Severity Reaction Status Date / Time No Known Drug Allergies Allergy Verified 09/16/24 12:47 Review of Systems Review of Systems Narrative: General: Denies fever, chills, weight loss HEENT: Denies headache, eye drainage, eye irritation, head trauma, sore throat, voice change Cardiovascular: Positive chest pain, denies palpitations, tachycardia Respiratory: Denies any shortness of breath, cough, wheeze, stridor GI/: Denies any abdominal pain, nausea, vomiting, diarrhea, bright red blood per rectum, melanotic stools, urinary frequency, urinary retention, dysuria, hematuria MSK: Denies any joint pain, muscle pains, swelling Skin: Denies any rashes, lesions, discoloration Neuro: Denies any headache, lightheadedness, dizziness, fainting, weakness Psych: Denies SI/HI Patient History Medical History (Updated 10/05/24 @ 00:15 by Alexandru Baeza DO) Primary osteoarthritis of both knees Bilateral chronic knee pain History of radiation therapy Foot pain Lower extremity edema Nocturia Medicare annual wellness visit, subsequent Pre-diabetes Androgen deprivation therapy Prostate cancer Bladder outlet obstruction Lower urinary tract symptoms Abnormal prostate by palpation Rising PSA level History of kidney stones Well adult exam Acute bacterial bronchitis Tendonitis of ankle, right Type 2 diabetes mellitus Fatigue BPH (benign prostatic hyperplasia) Elevated PSA Aortic stenosis Vision disorder Hearing loss Heart murmur Abdominal wall hernia Hyperlipidemia Hypertension Surgical History Hx of vasectomy S/P CABG (coronary artery bypass graft) Anesthesia History of hernia surgery Family History Mother Breast cancer Diabetes mellitus Hypertension Hyperlipidemia History of heart disease Social History marital status: number of children: 2 Tobacco: How many years used: 11 alcohol intake: former substance use type: does not use caffeine: Yes Type(s) of exercise: none Exam Initial Vital Signs Initial Vital Signs: Vital Signs Temperature 97.6 F 10/04/24 21:27 Pulse Rate 116 H 10/04/24 21:27 Respiratory Rate 20 10/04/24 21:27 Blood Pressure 194/92 H 10/04/24 21:27 Pulse Oximetry 98 10/04/24 21:27 Oxygen Delivery Method Room Air 10/04/24 21:27 Course Orders Ordered: ED Orders 10/04/24 21:25 XR chest 1V Stat EKG-12 Lead Stat 10/04/24 21:30 Complete Blood Count AUTO DIFF Stat Comprehensive Metabolic Panel Stat Lipase Stat Magnesium Stat NT-proBNP (BNP-Adult 18+) Stat PTT Partial Thromboplastin Sky Stat Prothrombin Time INR Stat Troponin & CK Cardiac Panel Stat 10/04/24 23:28 Trop I [Troponin I] Stat Discontinued Medications Aspirin (Aspirin 81 Mg Chew Tab) 324 mg PO NOW ONE Stop: 10/04/24 21:25 Last Admin: 10/04/24 23:49 Dose: Not Given Documented By: DKLeonie Vital Signs Vital signs: Vital Signs - 8 hr 10/04/24 21:27 10/04/24 21:31 10/04/24 22:00 Temperature 97.6 F Pulse Rate 116 H 110 H 110 H Respiratory Rate 20 21 23 Blood Pressure 194/92 H Pulse Oximetry 98 99 96 Oxygen Delivery Method Room Air 10/04/24 22:00 10/04/24 22:30 10/04/24 22:30 Temperature Pulse Rate 96 H Respiratory Rate 18 Blood Pressure 167/73 H 156/70 H Pulse Oximetry 97 Oxygen Delivery Method 10/04/24 23:00 10/04/24 23:00 10/04/24 23:30 Temperature Pulse Rate 93 H 119 H Respiratory Rate 19 36 H Blood Pressure 154/68 H Pulse Oximetry 96 97 Oxygen Delivery Method 10/04/24 23:31 Temperature Pulse Rate 122 H Respiratory Rate 27 H Blood Pressure Pulse Oximetry Oxygen Delivery Method MDM - Chest Pain Differential Diagnosis Differential diagnosis: Likely other (ACS, pneumonia, electrolyte abnormality) Lab Data 10/04/24 21:30 10/04/24 21:30 Labs: Lab Results 10/04/24 10/04/24 Range/Units 21:30 23:28 WBC 7.5 (4.5-11.0) X10^3/uL RBC 4.52 (4.5-5.9) X10^6/uL Hgb 14.5 (13.5-17.5) g/dL Hct 41.8 (41-53) % MCV 92.6 (80-100) fL MCH 32.2 (26-34) PG MCHC 34.8 (30-36) % RDW 12.5 (11.6-14.8) % Plt Count 214 (150-400) X10^3/uL Neut % (Auto) 53.3 (50-75) % Lymph % (Auto) 31.7 (25-40) % [place] % (Auto) 9.9 (3-14) % Eos % (Auto) 4.3 H (2-4) % Baso % (Auto) 0.8 (0-2) % Neut # (Auto) 4000 (9880-3548) /uL Lymph # (Auto) 2400 (8809-9462) /uL [place] # (Auto) 700 (0-900) /uL Eos # (Auto) 300 (0-450) /uL Baso # (Auto) 100 (0-100) /uL PT 10.3 (9.4-12.5) SECONDS INR 0.9 (0.9-1.3) APTT 44 H (25.1-36.5) SECONDS Sodium 138 (137-145) mmol/L Potassium 3.7 (3.4-5.1) mmol/L Chloride 101 (98-107) mmol/L Carbon Dioxide 29 (22-32) mmol/L BUN 28 H (9-20) mg/dL Creatinine 0.83 (0.66-1.25) mg/dL Estimated GFR > 60 (>60) mL/min BUN/Creatinine Ratio 33.7 H (6-22) Glucose 176 H (70-99) mg/dL Calcium 9.8 (8.4-10.2) mg/dL Magnesium 1.8 (1.6-2.3) mg/dL Total Bilirubin 0.4 (0.2-1.3) mg/dL AST 31 (17-59) IU/L ALT 29 (<50) IU/L Alkaline Phosphatase 69 (38-126) U/L Total Creatine Kinase 124 (55-170) U/L Troponin I < 0.012 0.021 (0.01-0.034) ng/mL NT-Pro-B Natriuret Pep 395 H (<125) pg/mL Total Protein 7.5 (6.3-8.2) g/dL Albumin 4.8 (3.5-5.0) g/dL Globulin 2.7 (1.7-4.1) g/dL Albumin/Globulin Ratio 1.8 (1.0-2.8) Lipase 52 (23-300) U/L Imaging Data Chest x-ray: Radiologist's Impression: [address] [address] XRay Report Signed Patient: Alek Carrillo MR#: [id number] : 1950 Acct:[id number] Age/Sex: 74 / M Date of Service: 10/04/24 Loc: ED Accession Number: [id number] Procedure: XR chest 1V Ordering Provider: Alexandru Baeza D.O. PROCEDURE: XR CHEST 1V INDICATIONS: Chest Pain TECHNIQUE: One view of the chest was acquired. COMPARISON: [facility], , XR CHEST 2V, 07/03/2020, 17:29. FINDINGS: Surgical changes and devices: Sternotomy. Lungs and pleura: Lungs are clear. No pleural effusions or pneumothorax. Mediastinum: Mediastinal contours appear normal. Heart size is normal. Bones and chest wall: No suspicious bony lesions. Overlying soft tissues appear unremarkable. IMPRESSION: No acute cardiopulmonary abnormality is seen. ECG Data Interpretation: EKG interpreted ED physician, sinus tachycardia 113 beats per minute, QTC [address] changes no STEMI MDM Narrative Medical decision making narrative: 74-year-old male with past medical history of CABG, hypertension, hyperlipidemia, BPH, presenting to the emergency department for chest pain, states it started proximally 1 hour prior to arrival happened when he was seated watching television, nonexertional, states that he took 3 nitros prior to arrival had complete resolution of his symptoms by time of initial evaluation. Patient states that he follows with Dr. Watson of Cardiology, states he saw him less than a year ago had a normal echo at that time. He denies any other symptoms at this time, patient's EKG nonischemic in nature chest x-ray without any acute cardiopulmonary abnormality, lab work did not show any signs of leukocytosis, Chem panel unremarkable, patient's initial troponin less than 0.012, repeat at 0.021. I discussed with the patient the need for additional repeat troponin possible admission and transfer, however he states he would rather go home and follow up with his activity therapist, he states that due the fact that he has complete resolution of his chest pain he does not want to be admitted or transferred, patient with a heart score of 4, I informed him that in this scenario he would have to be leaving against medical advice, he verbalized understanding of this and understands the risks and benefits, at bedside is there and understands and agrees she states that they are we ?3 blocks away and will come back if anything happens. Patient will be leaving against medical advice. We have discussed and explained the clinical examination, laboratory results, and imaging studies so far with the patient, both with full medical disclosure and layman's terms. The patient is an adult and is of sound mind. The patient appears to have intact insight, judgement and reason. Is alert and oriented x4. The patient is clinically sober and appears free from any distracting injury. The patient verbalized understanding. Despite incomplete workup the patient expresses a wish to leave. We have explained to the patient that leaving now would be leaving against medical advice. We have explained that leaving against medical advice without a complete workup and/or identification of pathology may lead to worsening of symptoms and even the possibility of disability or . The patient understands that the only way to safely avoid this is to complete the workup as leaving the grounds of the hospital would be leaving the care of trained medical translator, specialists, and resources that were available to the patient. We have expressed the need for the patient to stay in the hospital, considering the constellation of symptoms of breath the patient here. Despite this lengthy conversation the patient still expresses desire to leave against medical advice and demonstrates a full capacity to make their own medical decisions. We have informed the patient to call 911 or to seek immediate medical attention at their nearest emergency department if there are symptoms were to worsen/or change their mind. Discharge Plan Departure Patient Disposition: Left Against Medical Advice Clinical Impression: Left against medical advice, Chest pain Instructions: DI for Chest Pain Activity Restrictions/Additional Instructions: Please return to the emergency department if you have recurrent chest pain Please follow up with your activity therapist and your primary care doctor Prescriptions: No Action ezetimibe 10 mg tablet 10 mg PO DAILY fluticasone propionate [Flonase Allergy Relief] 50 mcg/actuation spray,suspension 1 spray intranasal Q12H Qty: 16 0RF Rx Instructions: administer into each nostril clopidogrel 75 mg tablet See Rx Instructions .ROUTE .COMPLEX Qty: 90 0RF Dose Instruction: TAKE 1 TABLET BY MOUTH DAILY Rx Instructions: TAKE 1 TABLET BY MOUTH DAILY metoprolol succinate 25 mg tablet extended release 24 hr See Rx Instructions .ROUTE .COMPLEX Qty: 90 1RF Dose Instruction: TAKE 1 TABLET BY MOUTH AT BEDTIME Rx Instructions: TAKE 1 TABLET BY MOUTH AT BEDTIME nitroglycerin 0.4 mg tablet, sublingual 0.4 mg sublingual Q5M PRN (Reason: chest pain) Qty: 30 3RF Rx Instructions: do not exceed 3 doses per episode rosuvastatin 20 mg tablet 20 mg PO DAILY Qty: 90 3RF lisinopril 2.5 mg tablet 2.5 mg PO BID Qty: 180 3RF tamsulosin 0.4 mg capsule See Rx Instructions .ROUTE .COMPLEX Qty: 180 3RF Dose Instruction: TAKE 2 CAPSULES BY MOUTH AT BEDTIME Rx Instructions: TAKE 2 CAPSULES BY MOUTH AT BEDTIME trazodone 50 mg tablet 50 mg PO BEDTIME PRN (Reason: insomnia) Qty: 30 1RF aspirin [Adult Low Dose Aspirin] 81 mg tablet,delayed release (DR/EC) 81 mg PO DAILY Referrals: Lalo Mitchell DO [Primary Care Provider] - Stand Alone Forms: Patient Portal/API, Against Med. Advice (Setswana)
[2024-10-05] VITALS: PULSE 90; RESP 15; O2SAT 97
[2024-10-05] LABS: Troponin I 0.021 ng/mL (0.01-0.034)
[2024-10-05 00:01] VITALS: BP 145/66; PULSE 91; RESP 16; O2SAT 97
== END 2024-10-05 00:22 | disposition left against medical advice (07) ==
PROVIDERS: Emergency Provider Student in an Organized Health Care Education/Training Program; PCP Family Medicine
DX: R07.9 Chest pain, unspecified (principal)
CPT/HCPCS: 36415; 71045; 80053; 82550; 83690; 83735; 83880; 84484; 85025; 85610; 85730; 93005; 99283; 99284

== ENCOUNTER → 2024-12-20 12:19 | Outpatient (CLI) | payer MEDICARE, SELFPAY ==
[2024-12-20 14:55] LABS: Prostate Specific Antigen < 0.064 ng/mL (0.10-4.00)
== END ==
PROVIDERS: PCP Family Medicine; Referring Provider Urology; Visit Provider Urology
DX: C61 Malignant neoplasm of prostate (principal)
CPT/HCPCS: 84153

== ENCOUNTER → 2025-03-28 09:05 | Outpatient (CLI) | payer MEDICARE, SELFPAY ==
[2025-03-28 10:57] LABS: Prostate Specific Antigen < 0.064 ng/mL (0.10-4.00)
== END ==
PROVIDERS: PCP Family Medicine; Referring Provider Urology; Visit Provider Urology
DX: C61 Malignant neoplasm of prostate (principal); N40.1 Benign prostatic hyperplasia with lower urinary tract symptoms; N13.8 Other obstructive and reflux uropathy
CPT/HCPCS: 36415; 84153

== ENCOUNTER → 2025-04-24 13:28 | Outpatient (CLI) | payer MEDICARE, SELFPAY ==
--- NOTE | 2025-04-24 13:29 | DI.ECHO.S_ITS ---
[place] [facility] : : [address] [address] : : [address] : : Phone: [phone] Echocardiogram Report + + :Name: IVAN DENNIS Study Date: 04/24/2025 Height: 70 in : :[facility] ReadingLocation: Weight: 220 lb : : Gender: Male BSA: 2.2 m2 : :: 1950 Age: 74 yrs BP: 142/76 mmHg: :Reason For Study: NONRHEUMATIC AORTIC VALVE STENOSIS : :Ordering Physician: FLORENCE, : :CALLY Performed By: Skip Mack : :Referring: CALLY WATSON : + + Interpretation Summary 1) Normal left ventricular size, wall motion, and systolic function (EF 60- 65%). 2) Normal right ventricular size with normal function. 3) There is moderate aortic stenosis (mean gradient 29mmHg, valve area 1.3cm2). 4) There is mild to moderate aortic regurgitation. 5) Compared to the Echo done 03/29/2024, no significant change. Procedure: A two-dimensional transthoracic echocardiogram with color flow and Doppler was performed. The study quality was technically adequate. Comparison is made with the echocardiogram of 03/29/2024. The patient was in atrial fibrillation with heart rates between 85-106 bpm during the exam. Left Ventricle: The left ventricle is normal in size. Left ventricular wall thickness is mildly increased. There is no ventricular septal defect visualized. The ejection fraction is estimated to be 60-65%. There are no focal wall motion abnormalities. Diastolic function could not be accurately assessed due to atrial fibrillation. Right Ventricle: The right ventricle is normal in size and function. Atria: The left atrial size is normal. Right atrial size is normal. There is no Doppler evidence for an interatrial shunt. Mitral Valve: There is mild mitral annular calcification. The mitral valve leaflets are mildly calcified. There is no mitral regurgitation noted. Aortic Valve: The aortic valve is trileaflet. The aortic valve is mildly calcified. There is moderate aortic stenosis. The peak aortic velocity is 3.6 m/sec. The aortic valve mean gradient is 29 mmHg. The calculated aortic valve area is 1.3 cm2. There is mild to moderate aortic regurgitation. Tricuspid Valve: The tricuspid valve leaflets are thin and pliable. No tricuspid regurgitation. Pulmonic Valve: The pulmonic valve is not well visualized. There is no pulmonic valvular regurgitation. Great Vessels: The aortic root is normal size. The dimensions of the ascending aorta are normal. The pulmonary is not well visualized. Pericardium/ Pleura There is no pericardial effusion. MMode/2D Measurements & Calculations LVIDd: 4.1 cm LVOT diam: 2.1 cm LVIDs: 2.6 cm Ao root diam: 3.3 cm FS: 37.7 % asc Aorta Diam: 3.2 cm EPSS: 1.5 cm IVSd: 1.2 cm LVPWd: 1.2 cm LV encarnacion. diameter/BSA (cm/m^2): 1.9 LV sys. diameter/BSA (cm/m^2): 1.2 LA A2 area: 22.5 cm2 RA long axis: 4.9 cm LA A4 area: 19.2 cm2 RA area: 17.2 cm2 LA length (vol): 6.3 cm RA vol: 51.8 ml LA vol: 58.1 ml RA : 23.8 ml/m2 LA vol index: 26.7 ml/m2 IVC diam: 2.0 cm RVD1 (basal): 3.6 cm RVD2 (mid): 2.9 cm TAPSE: 1.8 cm Doppler Measurements & Calculations Ao V2 max: 360.5 cm/sec LVOT Max Wade: 128.1 cm/sec Ao V2 mean: 246.8 cm/sec LV V1 max P.6 mmHg Ao max P.0 mmHg LV V1 VTI: 27.1 cm Ao mean P.0 mmHg BOSTON(I,D): 1.3 cm2 Ao V2 VTI: 72.3 cm BOSTON(V,D): 1.3 cm2 sev ratio: 0.37 BOSTON indexed to BSA (cm^2/m^2): 0.62 AI P1/2t: 301.7 msec AI dec slope: 407.0 cm/sec2 MV E max wade: 81.6 cm/sec PA V2 max: 108.0 cm/sec MV A max wade: 105.3 cm/sec PA V2 mean: 70.6 cm/sec MV E/A: 0.77 PA mean P.3 mmHg Med Peak E' Wade: 8.9 cm/sec PA pr(Accel): 49.9 mmHg E/E' med: 9.2 Lat Peak E' Wade: 10.0 cm/sec E/E' lat: 8.2 E/e' average: 8.7 MV dec time: 0.13 sec SVLVOT): 97.5 ml Reading Physician:05:42 PM
== END ==
LOC: ECHO 13:28
PROVIDERS: PCP Family Medicine; Referring Provider Family Medicine; Visit Provider Internal Medicine Cardiovascular Disease
DX: I34.81 Nonrheumatic mitral (valve) annulus calcification (principal); I35.0 Nonrheumatic aortic (valve) stenosis; I35.1 Nonrheumatic aortic (valve) insufficiency
CPT/HCPCS: 93306